=== PATIENT | male | born 1990 | race Caucasian/White ===

== ENCOUNTER 2017-09-23 10:12 | Emergency (ER) | payer OTHER ==
[~2017-09-23] VITALS: Ht 177.8 cm; Wt 79.4 kg
[~2017-09-23 10:12] MED LIST: CEPH500 PO; DIPH50 PO; KETO10 PO; Mucinex600 MG PO; PRED10 PO; PRED20 PO; PROCODE120 PO; RXPROM25 PO; TRAM50 PO
== END 2017-09-23 11:27 | disposition home or self-care (01) ==
LOC: ER 10:12
DX: L23.7 Allergic contact dermatitis due to plants, except food (principal); Z91.048 Other nonmedicinal substance allergy status
CPT/HCPCS: 96372; 99283; J3301

== ENCOUNTER 2019-06-24 01:29 | Emergency (ER) | payer SELFPAY ==
[~2019-06-24] VITALS: Ht 180.3 cm; Wt 79.4 kg
[2019-06-24] MEDS ORDERED: CEPH500 PO (02:01)
== END 2019-06-24 02:41 | disposition home or self-care (01) ==
LOC: ER 01:29
DX: T22.112A Burn of first degree of left forearm, initial encounter (principal); T31.0 Burns involving less than 10% of body surface; L03.114 Cellulitis of left upper limb; Z88.8 Allergy status to other drugs, medicaments and biological substances
CPT/HCPCS: 90471; 90714; 99283-25; A9270-GY

== ENCOUNTER 2020-04-27 17:19 | Emergency (ER) | payer SELFPAY ==
[~2020-04-27] VITALS: Ht 180.3 cm; Wt 79.4 kg
[2020-04-27] MEDS ORDERED: Norco 10-325 T1 EACH PO (19:21)
== END 2020-04-27 19:24 | disposition home or self-care (01) ==
LOC: ER 17:19
DX: S69.92XA Unspecified injury of left wrist, hand and finger(s), initial encounter (principal); L23.7 Allergic contact dermatitis due to plants, except food; W23.0XXA Caught, crushed, jammed, or pinched between moving objects, initial encounter
CPT/HCPCS: 29105; 73090; 99283-25; A9270

== ENCOUNTER 2020-06-06 18:42 | Emergency (ER) | payer OTHER ==
[~2020-06-06] VITALS: Ht 180.3 cm; Wt 81.7 kg
[~2020-06-06 18:42] MED LIST changes: +Norco 10-325 T1 EACH PO
== END 2020-06-06 19:54 | disposition home or self-care (01) ==
LOC: ER 18:42
DX: S83.91XA Sprain of unspecified site of right knee, initial encounter (principal); X50.1XXA Overexertion from prolonged static or awkward postures, initial encounter
CPT/HCPCS: 73562-RT; 99283-25

== ENCOUNTER 2021-02-19 13:32 | Emergency (ER) | payer OTHER ==
[~2021-02-19 13:32] MED LIST changes: +CYCL10 PO; +IBUP600 PO
== END 2021-02-19 13:45 | disposition left against medical advice (07) ==
LOC: ER 13:32
DX: Z53.21 Procedure and treatment not carried out due to patient leaving prior to being seen by health care provider (principal)

== ENCOUNTER 2022-06-18 21:37 | Emergency (ER) | payer BC ==
[~2022-06-18] VITALS: Ht 180.3 cm; Wt 88.5 kg
[2022-06-18] MEDS ORDERED: AMOCLA875 PO (22:22)
== END 2022-06-18 22:31 | disposition home or self-care (01) ==
LOC: ER 21:37
DX: K04.7 Periapical abscess without sinus (principal); F17.220 Nicotine dependence, chewing tobacco, uncomplicated
CPT/HCPCS: 64400; 99282-25